=== PATIENT | female | born 1935 | race Two or more races ===

== ENCOUNTER 2024-04-10 21:12 | Inpatient (IN) | payer MEDICARE, OTHER ==
[~2024-04-10] VITALS: Ht 162.6 cm; Wt 62.1 kg
[2024-04-10] MEDS: IV NS 0.9% 500 ML BAG IV ONE (22:08)
[2024-04-10] MEDS ORDERED: hydrALAZINE HCL IV 20 MG VIAL ONE ×2 (22:16→23:23)
[2024-04-10] MEDS: hydrALAZINE HCL IV 20 MG VIAL IV ONE ×2 (22:18→23:24)
[2024-04-10 22:23] LABS: BASOPHILS # (AUTO) 0.1 K/uL (0.0-0.2); BASOPHILS % (AUTO) 1.2 % (0.0-2.0); EOSINOPHILS # (AUTO) 0.1 K/uL (0.0-0.7); EOSINOPHILS % (AUTO) 1.7 % (0.0-6.0); HEMATOCRIT 43 % (33-45); HEMOGLOBIN 14.2 g/dL (11.5-14.8); LYMPHOCYTES # (AUTO) 2.1 K/uL (0.8-4.8); LYMPHOCYTES % (AUTO) 27.4 % (20.0-44.0); MEAN CORPUSCULAR HEMOGLOBIN 29 PG (26.0-33.0); MEAN CORPUSCULAR HGB CONC 34 g/dl (31.0-36.0); MEAN CORPUSCULAR VOLUME 87 fL (82-100); MONOCYTES # (AUTO) 0.7 K/uL (0.1-1.30); MONOCYTES % (AUTO) 8.6 % (2.0-12.0); NEUTROPHILS # (AUTO) 4.7 K/uL (1.8-8.9); NEUTROPHILS % (AUTO) 61.1 % (43.0-81.0); PLATELET COUNT (AUTO) 257 K/uL (150-450); RED BLOOD CELL COUNT(AUTO) 4.89 MIL/uL (4.0-5.2); RED CELL DISTRIBUTION WIDTH 13.2 % (11.5-15.0); WHITE BLOOD COUNT (AUTO) 7.6 K/uL (4.3-11.0)
[2024-04-10 22:29] LABS: CALCIUM, SERUM 8.8 mg/dL (8.5-10.1); CREATININE 1.1 mg/dL (0.6-1.3); POTASSIUM 4.3 mmol/L (3.5-5.1)
[2024-04-10 22:39] LABS: INR 0.97 (0.91-1.10); PARTIAL THROMBOPLASTIN TIME 25.9 SEC (24.3-34.3); PROTHROMBIN TIME 10.3 SECS (9.2-11.1)
[2024-04-11 00:24] LABS: APPEARANCE,URINE CLEAR (CLEAR); BILIRUBIN,URINE NEGATIVE (NEGATIVE); BLOOD, URINE NEGATIVE Ery/uL (NEGATIVE); COLOR,URINE YELLOW (YELLOW); KETONES,URINE NEGATIVE (NEGATIVE); LEUKOCYTE ESTERASE ,URINE NEGATIVE (NEGATIVE); NITRITE, URINE NEGATIVE (NEGATIVE); PH,URINE 6.5 (5.0-8.0); PROTEIN,URINE NEGATIVE (NEGATIVE); UGLUCOSE NEGATIVE (NEGATIVE); UROBILINOGEN,URINE 0.2 EU/dL (0.2)
[2024-04-11] MEDS ORDERED: Z GUARD REMEDY 4 OZ OINT TP PRN (02:00)
[2024-04-11] MEDS ORDERED: MAGNESIUM HYDROXIDE 30 ML UDC PO PRN (02:00)
[2024-04-11] MEDS ORDERED: MAG HYDROX/AL HYDROX/SIMETH 30 ML UDC PO PRN (02:00)
[2024-04-11] MEDS ORDERED: TEMAZEPAM 15 MG CAPSULE PO PRN (02:00)
[2024-04-11] MEDS ORDERED: ONDANSETRON HCL/PF 4 MG/2 ML VIAL IVP PRN (02:00)
[2024-04-11 03:58] VITALS: BP 147/68; TEMP 97.9; O2SAT 99
[2024-04-11] MEDS: HYDROCODONE/APAP 5/325MG TABLET PO PRN (05:11)
[2024-04-11] MEDS: hydrALAZINE HCL IV 20 MG VIAL IV PRN (05:19)
[2024-04-11 06:19] VITALS: BP 132/58; O2SAT 99
[2024-04-11] MEDS: PANTOPRAZOLE 40 MG TABLET.DR PO SCH (07:57)
[2024-04-11 08:00] VITALS: BP 145/68; TEMP 97.5; O2SAT 98
[2024-04-11] MEDS: NIFEdipine XL (30MG) 30 MG TAB PO SCH (11:41)
[2024-04-11 12:00] VITALS: BP 175/75; TEMP 98.4; O2SAT 98
[2024-04-11] MEDS: LOSARTAN POTASSIUM 25 MG TABLET PO SCH (12:44)
[2024-04-11] MEDS: ACETAMINOPHEN 325 MG TABLET PO PRN (13:51)
[2024-04-11 16:00] VITALS: BP 100/65; TEMP 97.6; O2SAT 94
[2024-04-11 20:00] VITALS: BP 149/65; TEMP 98.1; O2SAT 95
[2024-04-12] VITALS: BP 160/74; TEMP 97.9; O2SAT 94; O2SAT 95
[2024-04-12 08:00] VITALS: BP 116/58; TEMP 98.4; O2SAT 98
[2024-04-12 08:01] LABS: CALCIUM, SERUM 9.2 mg/dL (8.5-10.1); MAGNESIUM 2.2 mg/dL (1.8-2.4); PHOSPHORUS 3.1 mg/dL (2.5-4.9); POTASSIUM 3.7 mmol/L (3.5-5.1)
[2024-04-12 08:04] LABS: BASOPHILS # (AUTO) 0.1 K/uL (0.0-0.2); BASOPHILS % (AUTO) 0.7 % (0.0-2.0); EOSINOPHILS # (AUTO) 0.1 K/uL (0.0-0.7); EOSINOPHILS % (AUTO) 0.7 % (0.0-6.0); HEMATOCRIT 44 % (33-45); HEMOGLOBIN 14.7 g/dL (11.5-14.8); LYMPHOCYTES # (AUTO) 1.3 K/uL (0.8-4.8); LYMPHOCYTES % (AUTO) 14.5 % (20.0-44.0); MEAN CORPUSCULAR HEMOGLOBIN 29 PG (26.0-33.0); MEAN CORPUSCULAR HGB CONC 34 g/dl (31.0-36.0); MEAN CORPUSCULAR VOLUME 87 fL (82-100); MONOCYTES # (AUTO) 0.9 K/uL (0.1-1.30); MONOCYTES % (AUTO) 10.1 % (2.0-12.0); NEUTROPHILS # (AUTO) 6.5 K/uL (1.8-8.9); PLATELET COUNT (AUTO) 239 K/uL (150-450); RED BLOOD CELL COUNT(AUTO) 5.05 MIL/uL (4.0-5.2); RED CELL DISTRIBUTION WIDTH 13.3 % (11.5-15.0); WHITE BLOOD COUNT (AUTO) 8.8 K/uL (4.3-11.0)
[2024-04-12 11:12] LABS: THYROID STIMULATING HORMONE 3.33 uIU/mL (0.358-3.74)
[2024-04-12 20:00] VITALS: BP 136/76; TEMP 98.8; O2SAT 95
[2024-04-13] VITALS: BP 150/69; TEMP 98.4; O2SAT 97
[2024-04-13 04:00] VITALS: BP_SYST 119; BP_SYST 133; BP_DIAS 54; BP_DIAS 81; TEMP 98.4; O2SAT 96; O2SAT 99
[2024-04-13 07:00] VITALS: BP 160/73; TEMP 97.3; O2SAT 93
[2024-04-13] MEDS ORDERED: NIFE-35 PO (09:00)
[2024-04-13] MEDS ORDERED: LOSA25TA27 PO (09:00)
[2024-04-13] MEDS ORDERED: CLONIDINE HCL 0.1 MG TABLET PO PRN (09:30)
[2024-04-13 11:34] VITALS: BP 153/79; TEMP 97.5; O2SAT 94
== END 2024-04-13 15:45 | disposition home or self-care (01) | DRG 305 ==
LOC: ER 21:13 → TELE 04-11 01:41
PROVIDERS: ADMIT Internal Medicine; ATTEND Internal Medicine
DX: I16.0 Hypertensive urgency (principal); I10 Essential (primary) hypertension; Z91.199 Patient's noncompliance with other medical treatment and regimen due to unspecified reason
CPT/HCPCS: 36415; 70450-TC; 71045-TC; 80048-TC; 80061-TC; 83735-TC; 83880; 84100-TC; 84443-TC; 84484-TC; 85025-TC; 85730-TC; 93307-TC; 97110-TC; 97116-TC; 97530-TC; G0378; J0360; J7040